=== PATIENT | female | born 1980 | race Caucasian/White ===

== ENCOUNTER 2017-10-23 16:26 | Emergency (ER) | payer SELFPAY ==
[2017-10-23 16:26] VITALS: BP 178/107; PULSE 112; RESP 24; TEMP 37.4; O2SAT 97; BMI 33.7
[2017-10-23 16:34] VITALS: BP 147/81; PULSE 104; RESP 24; O2SAT 96
[2017-10-23 16:36] VITALS: O2SAT 96
--- NOTE | 2017-10-23 17:00 | RAD_ITS ---
STUDY: X-RAY CHEST REASON FOR EXAM: Female, 37 years old. Cough TECHNIQUE: Frontal and lateral views of the chest COMPARISON: 10/26/2014 FINDINGS: The lungs are clear. There are no pleural effusions. There is no pneumothorax. The heart is normal in size. The visualized osseous structures are within normal limits. RAD/Chest PA and Lateral IMPRESSION: No acute thoracic pathology. Electronically Signed: Andrey Forman, at 17:20 EDT Tel , Service support ,
[2017-10-23] MEDS: Ipratropium/Albuterol Sulfate 3 ML AMPUL.NEB INHALATION (17:18)
[2017-10-23 17:19] VITALS: PULSE 105; RESP 24
--- NOTE | 2017-10-23 17:34 | ED.VISSUMM ---
- ER Visit Summary Date of Service: 10/23/17 Chief Complaint: Cough and shortness of breath [] History of Present Illness: The patient is a 37 F [presents to the emergency department with a cough that started 6 days ago. Patient's had some productive sputum but typically she swallows it does not look at it. 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 Patient has had some body aches. Patient denies sore throat. Patient has had subjective fever at home and she has felt hot and cold. Past medical history significant for hypertension.] Physical Examination: [HEENT-PERRLA, EOMI. Cranial nerves II through XII grossly intact. TMs clear. Mucous membranes moist. No adenopathy. Cardiovascular-regular rate and rhythm without murmur or ectopy Lungs-good aeration bilaterally. Patient has expiratory wheezes bilaterally. Mild tachypnea. No accessory muscle use or retractions. Abdomen-normoactive bowel sounds, soft, nontender, no rebound or rigidity, no peritoneal signs. Extremities-intact ?4, normal range of motion, normal pulses, atraumatic] Test Results: [Chest x-ray obtained showed nothing acute] Emergency Department Course and Treatment: [Patient was given a DuoNeb aerosol and prednisone 40 mg p.o. Patient also started on doxycycline 100 mg p.o.] patient's wheezing significantly improved after treatment and symptomatically feels much improved. Treatment Plan: [Will be started on prednisone, albuterol inhaler, and doxycycline.] Disposition: [Discharged to home in stable condition]. Patient will be referred to primary care physician distribution engineering technologist for no doc. Patient advised to return if increased difficulty breathing or condition should worsen in any way. Impression: [Asthmatic bronchitis] This note was generated with [employer] dictation software. It may contain incorrect words, spelling, and punctuation that were not noted in review of the chart prior to signing ED Disposition - Plan for ED Patient: Chief Complaint: Shortness of Breath Referrals: Care Physician,No Primary [Primary Care Provider] -
--- NOTE | 2017-10-23 17:36 | ED.DEP ---
ED Disposition - Plan for ED Patient: Chief Complaint: Shortness of Breath Instructions: ED Bronchitis Asthmatic Prescriptions: Doxycycline Monohydrate 100 mg PO BID #20 cap Prednisone [Deltasone] 20 mg PO BID #6 tab Referrals: Care Physician,No Primary [Primary Care Provider] - Marcin Lynn III, MD [STAFF PHYSICIAN] - 3-5 Days
[2017-10-23] MEDS: Doxycycline 100 MG CAPSULE PO (17:39)
[2017-10-23] MEDS: predniSONE 20 MG Tablet 40 MG PO (17:39)
== END 2017-10-23 17:52 | disposition home or self-care (01) ==
PROVIDERS: Emergency Provider Emergency Medicine
DX: J45.909 Unspecified asthma, uncomplicated (principal); I10 Essential (primary) hypertension; Z72.0 Tobacco use
CPT/HCPCS: 71046; 94664; 99283

== ENCOUNTER 2018-08-13 20:44 | Emergency (ER) | payer MEDICAID, SELFPAY ==
[2018-08-13 20:45] VITALS: BP 164/96; PULSE 94; RESP 18; TEMP 36.8; O2SAT 96
[2018-08-13 20:46] VITALS: BP 164/97; PULSE 94; RESP 18; TEMP 36.8; O2SAT 96; BMI 33.5
[2018-08-13] MEDS: 0.9% Normal Saline 1,000 ML 1000 ML IV (21:15)
[2018-08-13] MEDS: DiphenhydrAMINE 50 MG/ML Syringe 25 MG IV (21:27)
[2018-08-13] MEDS: Metoclopramide 10 MG/2 ML Vial IV (21:28)
[2018-08-13] MEDS: Ketorolac 30 MG/ML Syringe IV (21:28)
[2018-08-13 21:44] LABS: Absolute Lymphocyte Count 1.85 X10^3/ul (0.83-4.51); Basophil# 0.06 X10^3/uL; Basophil% 0.5 % (0-1); Eosinophil# 0.03 X10^3/uL; Eosinophils% 0.3 % (0-5); Hematocrit 40.1 % (37-47); Hemoglobin 13.2 g/dl (12.0-15.0); Lymphocyte # 1.85 X10^3/ul (4.0); Lymphocyte % 16.5 % (19-41); Mean Corp Hgb Conc 32.9 g/gl (32-36); Mean Corpuscular Hgb 28.8 pg (27.0-32.0); Mean Corpuscular Volume 87.4 fL (81-99); Mean Platelet Vol. 8.7 fl (6.2-12.0); Monocyte# 0.25 X10^3/uL; Monocyte% 2.2 % (0-10); Neutrophil # 9.02 X10^3/uL (2.7-7.7); Neutrophil % 80.2 % (47-70); Platelet Count 474 K/mm3 (150-450); RBC Distribution Width CV 13.4 % (11.6-14.6); Red Blood Count 4.59 M/mm3 (4.2-5.4); White Blood Count 11.2 K/mm3 (4.4-11.0)
[2018-08-13 21:51] LABS: POSITIVE COUNT NO; POSITIVE DIFFERENTIAL NO; POSITIVE MORPHOLOGY NO
[2018-08-13 22:03] LABS: Anion Gap 7 (5-15); BUN 8 mg/dL (7-18); BUN/Creat Ratio 13.1 RATIO (10-20); Calcium,Total 8.4 mg/dL (8.5-10.1); Chloride 112 mmol/L (98-107); Creatinine, Serum 0.61 mg/dL (0.55-1.02); EST Glomerular Filtration Rate 115 mL/min (>60); Est Glom Filt Rate - Afr Amer 139 mL/min (>60); Estimated Creatinine Clearance 101.41 ml/min; Glucose 109 mg/dL (74-106); Potassium 3.8 mmol/L (3.5-5.1); Sodium Level 142 mmol/L (136-145)
--- NOTE | 2018-08-13 22:26 | ED.DCSUM_ITS ---
- ER Visit Summary Date of Service: 08/13/18 Chief Complaint: [Headache and vomiting] History of Present Illness: The patient is a 38 F [presents to the emergency department complaint of a headache that started 2 days ago. Patient started vomiting yesterday. Patient states that she is thrown up about 5 or 6 times. Patient states the headache came on gradually. Patient states she used to have migraines but has not had them in some time. She denies any falls or head injuries. Patient has had a little bit of a cold over the last week but feels like she is improved. She has not had any fevers. Regarding the headache patient does complain of photophobia. Patient did have some scotomas today wher e she saw wavy lines. Patient's headache is left-sided and throbbing. Patient denies any diarrhea. She denies sick contacts.] Physical Examination: [HEENT-PERRLA, EOMI. Cranial nerves II through XII grossly intact. TMs clear. Mucous membranes moist. No adenopathy. Cardiovascular-regular rate and rhythm without murmur or ectopy Lungs-clear to auscultation, chest wall stable without crepitus or subcu emphysema Abdomen-normoactive bowel sounds, soft, nontender, no rebound or rigidity, no peritoneal signs. Neuro hxav-axbkfe-noan and heel girard testing within normal limits, negative Romberg, negative pronator drift, fundi benign. Negative Kernig's and negative Brudzinski sign. Extremities-intact ?4, normal range of motion, normal pulses, atraumatic] Test Results: [CBC with differential obtained showed a white count of 11.2, hemoglobin 13, hematocrit 40, platelets 474. Chemistries were unremarkable.] Emergency Department Course and Treatment: [And received a liter normal same fluid bolus as well as Reglan, Benadryl, and Toradol. Patient's headache essentially resolved. Patient is feeling significantly improved. Patient was able to tolerate p.o. fluids.] Treatment Plan: [Patient will be given a prescription for Phenergan.] Disposition: [Discharged home in stable condition] Impression: [Migrainous cephalgia-resolved] This note was generated with [employer] dictation software. It may contain incorrect words, spelling, and punctuation that were not noted in review of the chart prior to signing ED Disposition - Plan for ED Patient: Chief Complaint: Nausea/Vomiting Referrals: Care Physician,No Primary [Primary Care Provider] -
--- NOTE | 2018-08-13 22:27 | ED.DEP ---
ED Disposition - Plan for ED Patient: Chief Complaint: Nausea/Vomiting Instructions: ED Headache Migraine Referrals: Care Physician,No Primary [Primary Care Provider] - Trevor Cordon MD [STAFF PHYSICIAN] - 3-5 Days
[2018-08-13 22:33] VITALS: BP 125/87; PULSE 85; RESP 16; O2SAT 96
== END 2018-08-13 22:34 | disposition home or self-care (01) ==
LOC: ED 21:16
PROVIDERS: Emergency Provider Emergency Medicine
DX: G43.909 Migraine, unspecified, not intractable, without status migrainosus (principal); Z72.0 Tobacco use
CPT/HCPCS: 80048; 85025; 96361; 96374; 96375; 99283; J7030; A4216

== ENCOUNTER 2019-06-09 18:01 | Emergency (ER) | payer SELFPAY ==
[2019-06-09 18:02] VITALS: BP 160/94; PULSE 114; RESP 16; TEMP 36.6; O2SAT 97; BMI 30.9
--- NOTE | 2019-06-09 18:17 | ED.DCSUM_ITS ---
History of Present Illness Chief Complaint: Complaint Informant: Patient Onset: Days Context: Gradual Onset Timing: Continuous Current Severity: Moderate Maximum Severity: Moderate Narrative: The patient presents to the emergency department dysuria. She said symptoms for the past 4 days. She states she is been taking cranberry juice and Azo. She had no improvement. She describes urgency and frequency. She denies any fevers or chills. She denies any flank pain or vomiting. She is otherwise been in her normal state of health. Prior similar symptoms: No Recent Illness/Hospitalization: No Past Medical History - Allergies and Home Meds Allergies/Adverse Reactions: Allergies codeine Allergy (Verified 06/09/19 18:02) Unknown Primary Care Physician: Care Physician,No Primary [Primary Care Provider] - Prior records reviewed: Yes Past Medical History: None Smoking Status: Current every day smoker Review of Systems General: Denies: Chills, Fever, Sweats Eyes: Denies: Visual changes - bilaterally, Diplopia ENT: Denies: Rhinorrhea, Sore throat Cardiovascular: Denies: Chest pain, Palpitations Respiratory: Denies: Dyspnea, Cough, Dyspnea on exertion Gastrointestinal: Denies: Abdominal pain, Nausea, Vomiting, Diarrhea, Melena, Hematochezia Genitourinary: Reports: Dysuria, Frequency. Denies: Hematuria Musculoskeletal: Denies: Back pain, Extremity Pain Skin: Denies: Rash, Wounds Neurological: Denies: Headache, Weakness, Numbness Physical Exam Vital Signs/Narrative: Vital Signs Temp Pulse Resp BP Pulse Ox 06/09/19 18:02 97.9 F 114 H 16 160/94 H 97 Inital Vital Signs reviewed: Yes General: Well nourished, Well developed, No Acute Distress Head: Normocephalic, Atraumatic Eyes: Perrl, EOMI ENT: Moist mucous membranes, No rhinorrhea Neck: Supple, Nontender Cardiovascular: Regular rate, Regular rhythm, No murmurs Respiratory: No distress, CTA bilaterally, Chest nontender Abdomen: Soft, Nontender, Nondistended, Normal bowel sounds Back: Nontender, Normal Inspection Extremities: Nontender, No edema Skin: Normal color, No rash Neurological: Alert, Oriented x3, Cranial nerves II-XII grossly intact, Normal Strength, Normal Sensation Psychological: Normal affect, Normal Mood Diagnostic/Tx/Re-eval Abnormal Lab Results 06/09/19 06/09/19 18:10 18:10 Urine Color Yellow Urine Clarity Clear Urine pH 6.5 Ur Specific [place] 1.015 Urine Protein Negative Urine Glucose (UA) Normal Urine Ketones Negative Urine Occult Blood 150 H Urine Nitrite Positive H Urine Bilirubin 3 H Urine Urobilinogen 4 H Ur Leukocyte Esterase 500 H Urine Test Negative - Medical Decision Making The patient presents with symptoms of acute cystitis. Her abdomen is soft and nontender. She had no fever or flank pain. I really do not suspect pyelonephritis. Her urine does show obvious evidence of infection. Culture was added. The patient will be treated with Bactrim. Dose here to be continued on this. She was counseled on concerning symptoms and reasons to return. She will be discharged home. Impression 1. Acute cystitis without hematuria ED Disposition - Plan for ED Patient: Instructions: Bladder Infection, Female (Adult) Prescriptions: Smz/Tmp Ds [Bactrim Ds] 1 tab PO BID #14 tab Prescription Printed Referrals: Care Physician,No Primary [Primary Care Provider] -
[2019-06-09 18:19] LABS: Mucous, Urine 0 SEEN /hpf (<or=2+)
[2019-06-09 18:22] VITALS: TEMP 36.6
[2019-06-09 18:23] LABS: Color, Urine Yellow (Yellow); Glucose, Dipstick Normal (Normal); Ketone-Dipstick Negative (Negative); Leukocyte Esterase-Dipstick 500 /ul (Negative); Nitrite-Dipstick Positive (Negative); Occult Blood-Urine 150 /ul (Negative); Protein-Dipstick Negative (Negative); Specific Gravity, Urine 1.015 (1.002-1.030); Urine Bilirubin Dipstick 3 mg/dL (Negative); Urine Clarity Clear (Clear); Urine Urobilinogen 4 mg/dl (Normal); Urine pH 6.5 (5.0 - 8.0)
[2019-06-09 18:26] LABS: Internal QC Validated? YES +Cl - CLEAR BKGD; Pregnancy, Urine Negative Negative
[2019-06-09 18:29] LABS: Bacteria RARE /hpf (None Seen); Red Blood Cells-Urine 0-5 SEEN /hpf (0-5); Squamous Epithelial Cells - UA 0-5 SEEN /hpf (5-10); White Blood Cells 25-50 SEEN /hpf (0-5)
[2019-06-09] MEDS: Smz/Tmp Ds Tablet 1 TABLET PO (18:49)
== END 2019-06-09 18:58 | disposition home or self-care (01) ==
LOC: ED 18:20
PROVIDERS: Emergency Provider Emergency Medicine
DX: N30.00 Acute cystitis without hematuria (principal); F17.200 Nicotine dependence, unspecified, uncomplicated
CPT/HCPCS: 81001; 81025; 87086; 87088; 87186; 99283

== ENCOUNTER 2023-12-21 09:22 | Emergency (ER) | payer SELFPAY ==
[2023-12-21 09:23] VITALS: BP 171/89; PULSE 92; RESP 16; TEMP 36.6; O2SAT 97; BMI 31.9
--- NOTE | 2023-12-21 09:34 | EKG12_ITS ---
Test Reason : Blood Pressure : / mmHG Vent. Rate : 081 BPM Atrial Rate : 081 BPM P-R Int : 170 ms QRS Dur : 078 ms QT Int : 372 ms P-R-T Axes : 027 000 006 degrees QTc Int : 432 ms Normal sinus rhythm Low voltage QRS Borderline ECG Confirmed by Antoine De Souza ([id number]), newspaper photo editor BART ESCOBAR ([id number]) on 12/23/2023 9:06:04 AM Referred By: Confirmed By:Antoine De Souza
--- NOTE | 2023-12-21 09:34 | RAD_ITS ---
INDICATION: weakness EXAMINATION/TECHNIQUE: X-RAY - XR Chest 1 View COMPARISON: October 23, 2017 FINDINGS: LINES/DEVICES: None. LUNGS: No consolidation, edema or effusion. No pneumothorax. MEDIASTINUM AND CARDIOVASCULAR STRUCTURES: Cardiac silhouette not enlarged. Central airways and mediastinal contour are unremarkable. BONES AND SOFT TISSUES: Unremarkable. RAD/Chest 1 View (Portable) IMPRESSION: No radiographic evidence of acute cardiopulmonary disease. Electronically Signed: Raina Saxena MD at 10:42 EDT ,
--- NOTE | 2023-12-21 09:35 | EX.ED.DYSGE1 ---
HPI History of Present Illness Chief Complaint: Fatigue Detail of Chief Complaint: Fatigue and joint aches Informant: patient Narrative Narrative: Patient presents the emergency department with complaint of fatigue for about a week. She recently came back from [place] via vehicle. Patient states she often makes the trip. She went to urgent care today and they referred her to the emergency department. She woke today feeling like her hands were swollen. She is been having some body aches for which she is been taken ibuprofen for a week. She states that she is gained about 7 pounds in the last week. She is urinating normally. She denies recent illness. She denies fevers. She denies history of autoimmune disease. No thyroid issues. Patient states she did not want to come to the ER but urgent care advised her to come. Patient denies chest pain or shortness of breath. PFSH PFSH Home Medications ?Medication ?Instructions ?Recorded ?Last Taken ?Type NK 12/21/23 Unknown History Allergy/AdvReac Type Severity Reaction Status Date / Time codeine Allergy Unknown Verified 12/21/23 09:26 Surgical History (Updated 12/21/23 @ 09:27 by Jada Foster) History of History of tonsillectomy Social History Smoking Status: Current every day smoker tobacco type: e-cigarettes ROS ROS ED ROS Narrative Swelling to hands Review of Systems ROS Unobtainable: other Constitutional Constitutional ED: Reports lethargy; Denies chills, fever(s), sweats or weight loss Eyes Eyes: Denies blurry vision, change in vision or diplopia ENT ENT ED: Denies rhinorrhea or sore throat Cardiovascular Cardiovascular: Denies chest pain, orthopnea or racing heartbeat Respiratory/Chest Respiratory/Chest: Denies cough, dyspnea, dyspnea on exertion, orthopnea or sputum Gastrointestinal Gastrointestinal: Denies abdominal pain, diarrhea, nausea or vomiting Genitourinary Genitourinary ED: Denies dysuria, hematuria or urinary frequency Musculoskeletal Musculoskeletal: Reports arthralgias; Denies back pain, myalgias or neck pain Integumentary Denies abscess, Abrasions or rash Neurologic Neurologic: Denies headache(s) or weakness Psychiatric Psychiatric: Denies anxiety, depression or suicidal thoughts Endocrine Endocrinology: Denies polydipsia, polyphagia or polyuria Hematologic/Lymphatic Hematologic/Lymphatic: Denies easy bleeding, easy bruising or lymphadenopathy Allergic/Immunologic Allergic/Immunologic ED: Denies mouth swelling, tongue swelling or urticaria EXAM Physical Exam Const Vital Signs: 12/21/23 09:23 12/21/23 09:26 Temperature 97.8 F Temperature Source Temporal Pulse Rate 92 Respiratory Rate 16 Respiratory Effort Normal Respiratory Pattern Normal Blood Pressure 171/89 H Blood Pressure Mean 116 Pulse Ox 97 Oxygen Delivery Method Room Air Positive well nourished and well developed General Appearance ED: well developed and NAD HEENT Reports TM's clear and moist mucous membranes normocephalic and atraumatic; Negative for trauma or tenderness Tympanic Membrane ED: Yes TM's clear Eyes PERRL and EOMs intact bilaterally General Eye ED: Negative for pale conjunctiva or scleral icterus Neck no lymphadenopathy, supple and no JVD General: Negative for tenderness Chest Wall inspection of chest normal and palpation of chest normal Chest: Negative for tenderness Resp normal respiratory effort and clear to auscultation bilaterally Effort and Inspection: Negative for respiratory distress or pain with movement Auscultation: Negative for rhonchi, wheezes or diminished lung sounds Cardio regular rate, regular rhythm, S1 normal heart sound, S2 normal heart sound and no murmurs Peripheral Pulses: pulses 2+ throughout GI normal to inspection, nondistended, normoactive bowel sounds, soft to palpation, non-tender, non-distended and no masses Back/Spine no CVA tenderness and no thoracic nor lumbar tenderness Extremity normal to inspection General Extremety ED: Negative for edema General Extremity: Negative for edema Neuro oriented x3, CN's II-XII intact bilaterally, no sensory deficits noted and gait normal Sensorium / Orientation: awake, alert, oriented to person, oriented to place and oriented to time Motor Exam: strength 5/5 throughout and strength abnormal Psych mental status grossly normal Skin no rashes or lesions noted and no wounds MDM MDM MDM Narrative Medical decision making narrative: Patient presents with vague complaints of fatigue and some arthralgias. Referred to the ER by urgent care because she complained of some swelling in her hands and she had recent travel to [place]. She denies chest pain or shortness of breath. No history of DVT. Clinically she looks well. She seems somewhat annoyed to be here. IV line established. EKG obtained arrival showed a sinus rhythm with a rate of 81 bpm with no acute ST segment changes. CBC with differential showed a white count of 6.6 with hemoglobin 12.0 and platelet count of 394. Chemistries unremarkable. Troponin less than 3. Sed rate normal at 11 and CRP minimally elevated 5.29. TSH was normal at 0.87. Urinalysis was normal. At this point etiology of her fatigue unclear. I also did do COVID flu and RSV testing which was negative. Recommended she follow-up with primary care physician within next 3 to 5 days. Suspect possible viral etiology. I do not feel her symptoms consistent with DVT and I do not think she needs further testing. Lab Data Attestation: I reviewed the patient's lab results. Labs: Laboratory Results - last 24 hr 12/21/23 12/21/23 09:40 09:50 WBC 6.6 RBC 4.17 L Hgb 12.0 Hct 36.6 L MCV 87.8 MCH 28.8 MCHC 32.8 RDW Std Deviation 41.3 RDW Coeff of Kristin 12.8 Plt Count 394 MPV 9.0 Immature Gran % (Auto) 0.300 Neut % (Auto) 59.2 Lymph % (Auto) 27.9 [place] % (Auto) 5.8 Eos % (Auto) 5.9 H Baso % (Auto) 0.9 Absolute Neuts (auto) 3.9 Absolute Lymphs (auto) 1.83 Nucleated RBC % 0 ESR 11 Sodium 140 Potassium 3.9 Chloride 113 H Carbon Dioxide 25.0 Anion Gap 2 L BUN 10 Creatinine 0.82 Estim Creat Clear Calc 84.50 Est GFR (MDRD) Af Amer 97 Est GFR (MDRD) Non-Af 80 BUN/Creatinine Ratio 12.3 Glucose 95 Calcium 8.5 Troponin I High Sens < 3 L C-React Prot Ext Range 5.29 H TSH 0.87 Urine Color Yellow Urine Clarity Clear Urine pH 7.0 Ur Specific [place] 1.005 Urine Protein Negative Urine Glucose (UA) Normal Urine Ketones Negative Urine Occult Blood 150 H Urine Nitrite Negative Urine Bilirubin Negative Urine Urobilinogen Normal Ur Leukocyte Esterase Negative Urine RBC 0-5 SEEN Urine WBC 0 SEEN Ur Squamous Epith Cells 0-5 SEEN Urine Bacteria RARE Urine Mucus 0 SEEN Radiography Diagnostic Testing: Clinical Impression(s) from Imaging Studies Chest X-Ray 12/21/23 09:34 IMPRESSION: No radiographic evidence of acute cardiopulmonary disease. Electronically Signed: Raina Saxena MD at 10:42 EDT , 1 view chest x-ray obtained interpreted by myself no evidence of infiltrate or pneumothorax or acute disease process. EKG Initial EKG: Attestation: I personally reviewed and interpreted this EKG as follows: Comments: Sinus rhythm with rate of 81 bpm with no acute ST segment changes Discharge Plan Triage Chief Complaint: Fatigue ED Provider: Zuleyka Fortune Dx/Rx/DC Orders Clinical Impression: Weakness, Arthralgia Instructions: ED Arthralgia, ED Weakness (Uncertain Cause) Prescriptions: No Action NK Primary Care Provider: Care Physician,No Primary Referrals: Bouchra Billy MD [Med Staff - Digital Asset Manager] - 5-7 Days Care Physician,No Primary [Primary Care Provider] - Print Language: Montenegrin Disposition Disposition: Home, Self Care
[2023-12-21 09:58] LABS: Mucous, Urine 0 SEEN /hpf (<or=2+); White Blood Cells 0 SEEN /hpf (0-5)
[2023-12-21 10:04] LABS: Color, Urine Yellow (Yellow); Glucose, Dipstick Normal (Normal); Ketone-Dipstick Negative (Negative); Leukocyte Esterase-Dipstick Negative /ul (Negative); Nitrite-Dipstick Negative (Negative); Occult Blood-Urine 150 /ul (Negative); Protein-Dipstick Negative (Negative); Specific Gravity, Urine 1.005 (1.002-1.030); Urine Bilirubin Dipstick Negative (Negative); Urine Clarity Clear (Clear); Urine Urobilinogen Normal (Normal)
[2023-12-21 10:16] LABS: Bacteria RARE /hpf (None Seen); Red Blood Cells-Urine 0-5 SEEN /hpf (0-5); Squamous Epithelial Cells - UA 0-5 SEEN /hpf (5-10)
[2023-12-21 10:16] LABS: Absolute Lymphocyte Count 1.83 X10^3/uL (0.83-4.51); Absolute Neutrophil Count 3.9 X10^3/uL (2.0-7.7); Basophil# 0.06 X10^3/uL; Basophil% 0.9 % (0-1); Eosinophil# 0.39 X10^3/uL; Eosinophils% 5.9 % (0-5); Hematocrit 36.6 % (37-47); Lymphocyte # 1.83 X10^3/ul (0.83-4.51); Lymphocyte % 27.9 % (19-41); Mean Corp Hgb Conc 32.8 g/dL (32-36); Mean Corpuscular Hgb 28.8 pg (27.0-32.0); Mean Corpuscular Volume 87.8 fL (81-99); Monocyte# 0.38 X10^3/uL; Monocyte% 5.8 % (0-10); NRBC Flagged by Analyzer 0 % (0-5); Neutrophil # 3.88 X10^3/uL (2.7-7.7); Neutrophil % 59.2 % (47-70); POSITIVE MORPHOLOGY YES; Platelet Count 394 K/mm3 (150-450); RBC Distribution Width CV 12.8 % (11.6-14.6); RBC Distribution Width SD 41.3 fl (35.1-43.9); Red Blood Count 4.17 M/mm3 (4.2-5.4); White Blood Count 6.6 K/mm3 (4.4-11.0)
[2023-12-21 10:18] LABS: Differential Indicated SCAN CRITERIA MET
[2023-12-21 10:49] LABS: Anion Gap 2 (5-15); BUN 10 mg/dL (7-18); BUN/Creat Ratio 12.3 RATIO (10-20); CRP 5.29 mg/L (0.0-3.0); Calcium,Total 8.5 mg/dL (8.5-10.1); Chloride 113 mmol/L (98-107); Creatinine, Serum 0.82 mg/dL (0.55-1.02); EST Glomerular Filtration Rate 80 mL/min (>60); Est Glom Filt Rate - Afr Amer 97 mL/min (>60); Glucose 95 mg/dL (74-106); Potassium 3.9 mmol/L (3.5-5.1); Sodium Level 140 mmol/L (136-145); Thyroid Stim Hormone (TSH) 0.87 uIU/mL (0.358-3.74); Troponin-I HS < 3 pg/mL (3.0-54.0)
[2023-12-21 10:55] LABS: Erythrocyte Sedimentation Rate 11 mm/hr (0-30)
[2023-12-21 11:08] VITALS: BP 161/74; PULSE 89; RESP 16; TEMP 36.4; O2SAT 99
== END 2023-12-21 11:09 | disposition home or self-care (01) ==
PROVIDERS: Emergency Provider Emergency Medicine; Visit Provider Emergency Medicine
DX: R53.1 Weakness (principal); R53.83 Other fatigue; F17.290 Nicotine dependence, other tobacco product, uncomplicated
CPT/HCPCS: 71045; 80048; 81001; 84443; 84484; 85025; 85652; 86140; 87631; 93005; 99283